=== PATIENT | female | born 1935 | race Caucasian/White ===

== ENCOUNTER 2021-06-11 04:07 | Emergency (ER) | payer MEDICARE ==
[2021-06-11] MEDS ORDERED: Lidocaine 1% w/Epinephrine 1:100K 20 ML VIAL ONE (04:14)
[2021-06-11] MEDS ORDERED: Boostrix 0.5 ML (Tdap) VIAL ONE (05:38)
[2021-06-11] MEDS ORDERED: Bacitracin 1 PK ONE (06:24)
== END 2021-06-11 10:47 ==
LOC: ERS 04:07
DX: S61.512A Laceration without foreign body of left wrist, initial encounter (principal); S80.12XA Contusion of left lower leg, initial encounter; Z23 Encounter for immunization; Z79.82 Long term (current) use of aspirin; Z79.899 Other long term (current) drug therapy; W01.0XXA Fall on same level from slipping, tripping and stumbling without subsequent striking against object, initial encounter
CPT/HCPCS: 12035; 70450; 90471; 90715

== ENCOUNTER 2021-07-02 17:42 | Emergency (ER) | payer MEDICARE ==
[2021-07-02 20:36] LABS: #Eosinphils 0.2 thou/uL (0.0-0.7); #Lymphocytes 1.5 thou/uL (1.20-3.40); #Monocytes 0.7 thou/uL (0.11-0.59); #Neutrophils 4.5 thou/uL (1.40-6.50); %Basophils 0.7 % (0.0-1.0); %Lymphocytes 21.6 % (21.0-51.0); %Monocytes 10.1 % (0.0-10.0); %Neutrophils 64.6 % (42.0-75.0); Hemoglobin 9.6 g/dL (12.0-16.0); Mean Corpuscular HGB CONC 33.4 g/dL (32.0-36.0); Mean Corpuscular Hemoglobin 32.3 pg (27.0-31.0); Mean Corpuscular Volume 96.7 fL (78.0-98.0); Mean Platelet Volume 5.8 fL (7.4-10.4); Platelet Count 531 thou/uL (130-400); RBC Distribution Width 11.9 % (11.5-14.5); Red Blood Cell (RBC) Count 2.96 mill/uL (4.20-5.40); White Blood Cell (WBC) Count 6.9 thou/uL (4.8-10.8)
[2021-07-02 20:55] LABS: ALT (SGPT) Less than 7 U/L (8-55); AST (SGOT) 12 U/L (5-34); Albumin 3.7 g/dL (3.4-4.8); Alkaline Phosphatase 97 U/L (40-110); Anion Gap 12 mmol/L (10-20); BUN (Urea Nitrogen) 19 mg/dL (9.8-20.1); Bilirubin, Total 0.2 mg/dL (0.2-1.2); Calc. Creatinine Clearance 0 mL/min (70-130); Calcium 9.2 mg/dL (7.8-10.44); Carbon Dioxide 23 mmol/L (23-31); Chloride 102 mmol/L (98-107); Globulin 3.6 g/dL (2.4-3.5); Glucose 101 mg/dL (83-110); Potassium 4.3 mmol/L (3.5-5.1); Protein, Total 7.3 g/dL (5.8-8.1); Sodium 133 mmol/L (136-145)
[2021-07-02] MEDS ORDERED: Clindamycin/D5W 900 mg/50 ml Premix Bag ONE (20:59)
== END 2021-07-02 23:14 ==
LOC: ERS 17:42
DX: S80.812A Abrasion, left lower leg, initial encounter (principal); L03.116 Cellulitis of left lower limb; I10 Essential (primary) hypertension; E03.9 Hypothyroidism, unspecified; W19.XXXA Unspecified fall, initial encounter; Z79.82 Long term (current) use of aspirin; Z79.899 Other long term (current) drug therapy
CPT/HCPCS: 36415; 80053; 83605; 85025; 87040; 96365; J3490

== ENCOUNTER 2021-12-10 11:53 | Inpatient (IN) | payer MEDICARE ==
[2021-12-10 12:49] LABS: #Eosinphils 0.1 thou/uL (0.0-0.7); #Lymphocytes 1.3 thou/uL (1.20-3.40); #Monocytes 1.4 thou/uL (0.11-0.59); #Neutrophils 12.2 thou/uL (1.40-6.50); %Basophils 0.1 % (0.0-1.0); %Eosinophils 0.8 % (0.0-10.0); %Lymphocytes 8.3 % (21.0-51.0); %Monocytes 9.6 % (0.0-10.0); %Neutrophils 81.2 % (42.0-75.0); Hemoglobin 9.7 g/dL (12.0-16.0); Mean Corpuscular HGB CONC 29.6 g/dL (32.0-36.0); Mean Corpuscular Hemoglobin 27.8 pg (27.0-31.0); Mean Corpuscular Volume 93.8 fL (78.0-98.0); Mean Platelet Volume 5.8 fL (7.4-10.4); Platelet Count 551 thou/uL (130-400); RBC Distribution Width 15.6 % (11.5-14.5)
[2021-12-10 13:06] LABS: INR-International Normal Ratio 1.3; PTT 52.7 sec (22.9-36.1)
[2021-12-10 13:07] LABS: D-Dimer Test 3.71 *mcg/mL (0.27-0.43)
[2021-12-10 13:10] LABS: ALT (SGPT) Less than 7 U/L (8-55); AST (SGOT) 10 U/L (5-34); Albumin 3.9 g/dL (3.4-4.8); Alkaline Phosphatase 103 U/L (40-110); Anion Gap 15 mmol/L (10-20); BUN (Urea Nitrogen) 23 mg/dL (9.8-20.1); Bilirubin, Total 1.1 mg/dL (0.2-1.2); Calc. Creatinine Clearance 0 mL/min (70-130); Calcium 9.3 mg/dL (7.8-10.44); Carbon Dioxide 23 mmol/L (23-31); Chloride 101 mmol/L (98-107); Glucose 99 mg/dL (83-110); Potassium 3.7 mmol/L (3.5-5.1); Protein, Total 7.9 g/dL (5.8-8.1); Sodium 135 mmol/L (136-145)
[2021-12-10] MEDS ORDERED: Cefepime 2 GM VIAL ONE (14:56)
[2021-12-10] MEDS ORDERED: Docusate 100 MG CAP PO PRN (15:26)
[2021-12-10] MEDS ORDERED: Vancomycin 1 GM/200 ML BAG ONE (15:40)
[2021-12-10] MEDS: Carvedilol 3.125 MG TAB PO SCH (18:46)
[2021-12-10] MEDS: Sodium Chloride 0.9% 1,000 ML IV SCH (18:47)
[2021-12-10 19:28] VITALS: BMI 22.4
[2021-12-10] MEDS: Carbidopa/Levodopa CR 50-200 mg Tablet PO SCH (21:04)
[2021-12-11] MEDS: Cefepime 2 GM in Sodium Chloride 0.9% 100 ML IVPB SCH ×2 (02:52→15:14)
[2021-12-11] MEDS: Sodium Chloride 0.9% 1,000 ML IV SCH ×3 (02:53→20:22)
[2021-12-11] MEDS: Levothyroxine Sodium 50 MCG TAB PO SCH (06:03)
[2021-12-11 06:17] LABS: #Eosinphils 0.2 thou/uL (0.0-0.7); #Lymphocytes 1.1 thou/uL (1.20-3.40); #Neutrophils 6.4 thou/uL (1.40-6.50); %Basophils 0.4 % (0.0-1.0); %Lymphocytes 13.1 % (21.0-51.0); %Monocytes 11.4 % (0.0-10.0); %Neutrophils 73.1 % (42.0-75.0); Hemoglobin 8.6 g/dL (12.0-16.0); Mean Corpuscular HGB CONC 31.2 g/dL (32.0-36.0); Mean Corpuscular Hemoglobin 28.5 pg (27.0-31.0); Mean Corpuscular Volume 91.2 fL (78.0-98.0); Mean Platelet Volume 6.2 fL (7.4-10.4); Platelet Count 552 thou/uL (130-400); RBC Distribution Width 15.6 % (11.5-14.5); Red Blood Cell (RBC) Count 3.03 mill/uL (4.20-5.40); White Blood Cell (WBC) Count 8.8 thou/uL (4.8-10.8)
[2021-12-11 07:00] LABS: Anion Gap 11 mmol/L (10-20); BUN (Urea Nitrogen) 14 mg/dL (9.8-20.1); Calc. Creatinine Clearance 57 mL/min (70-130); Calcium 8.4 mg/dL (7.8-10.44); Carbon Dioxide 23 mmol/L (23-31); Chloride 107 mmol/L (98-107); Glucose 97 mg/dL (83-110); Potassium 3.4 mmol/L (3.5-5.1); Sodium 138 mmol/L (136-145)
[2021-12-11] MEDS ORDERED: Potassium Chloride 20 MEQ TAB PO SCH (07:30)
[2021-12-11] MEDS: Cholecalciferol 1,000 UNITS (25 MCG) TAB PO SCH (10:19)
[2021-12-11] MEDS: Aspirin 81 mg Enteric Coated Tablet PO SCH (10:19)
[2021-12-11] MEDS: Carbidopa/Levodopa CR 50-200 mg Tablet PO SCH ×3 (10:19→20:21)
[2021-12-11] MEDS: Folic Acid 1 MG TAB PO SCH (10:19)
[2021-12-11] MEDS: Carvedilol 3.125 MG TAB PO SCH ×2 (10:21→17:52)
[2021-12-11] MEDS: Enoxaparin Sodium 30 MG/0.3 ML SYRINGE SC SCH (10:21)
[2021-12-11] MEDS: Saccharomyces boulardii 250 MG CAP PO SCH (10:21)
[2021-12-11] MEDS: Cyanocobalamin (Vitamin B-12) 1,000 MCG TAB PO SCH (10:21)
[2021-12-11] MEDS: Vancomycin HCl 750 MG in Sodium Chloride 0.9% 250 ML 250 ML IVPB SCH (17:53)
[2021-12-12] MEDS: Cefepime 2 GM in Sodium Chloride 0.9% 100 ML IVPB SCH ×2 (03:15→15:46)
[2021-12-12] MEDS: Levothyroxine Sodium 50 MCG TAB PO SCH (05:40)
[2021-12-12 06:50] LABS: #Eosinphils 0.2 thou/uL (0.0-0.7); #Lymphocytes 1.1 thou/uL (1.20-3.40); #Monocytes 0.7 thou/uL (0.11-0.59); #Neutrophils 5.3 thou/uL (1.40-6.50); %Basophils 0.6 % (0.0-1.0); %Eosinophils 3.1 % (0.0-10.0); %Lymphocytes 14.7 % (21.0-51.0); %Monocytes 9.5 % (0.0-10.0); %Neutrophils 72.1 % (42.0-75.0); Hemoglobin 9.3 g/dL (12.0-16.0); Mean Corpuscular Hemoglobin 28.3 pg (27.0-31.0); Mean Corpuscular Volume 94.5 fL (78.0-98.0); Mean Platelet Volume 6.5 fL (7.4-10.4); Platelet Count 511 thou/uL (130-400); RBC Distribution Width 15.7 % (11.5-14.5); Red Blood Cell (RBC) Count 3.27 mill/uL (4.20-5.40); White Blood Cell (WBC) Count 7.3 thou/uL (4.8-10.8)
[2021-12-12 07:12] LABS: Anion Gap 14 mmol/L (10-20); BUN (Urea Nitrogen) 11 mg/dL (9.8-20.1); Calc. Creatinine Clearance 56 mL/min (70-130); Calcium 8.4 mg/dL (7.8-10.44); Carbon Dioxide 20 mmol/L (23-31); Chloride 106 mmol/L (98-107); Glucose 94 mg/dL (83-110); Potassium 3.8 mmol/L (3.5-5.1); Sodium 136 mmol/L (136-145)
[2021-12-12] MEDS: Aspirin 81 mg Enteric Coated Tablet PO SCH (09:31)
[2021-12-12] MEDS: Cholecalciferol 1,000 UNITS (25 MCG) TAB PO SCH (09:31)
[2021-12-12] MEDS: Cyanocobalamin (Vitamin B-12) 1,000 MCG TAB PO SCH (09:31)
[2021-12-12] MEDS: Saccharomyces boulardii 250 MG CAP PO SCH (09:31)
[2021-12-12] MEDS: Carbidopa/Levodopa CR 50-200 mg Tablet PO SCH ×3 (09:31→20:15)
[2021-12-12] MEDS: Folic Acid 1 MG TAB PO SCH (09:31)
[2021-12-12] MEDS: Carvedilol 3.125 MG TAB PO SCH ×2 (09:32→15:56)
[2021-12-12] MEDS: Enoxaparin Sodium 30 MG/0.3 ML SYRINGE SC SCH (09:33)
[2021-12-12 15:23] LABS: Vancomycin, Trough 3.6 ug/mL
[2021-12-12] MEDS: Vancomycin HCl 750 MG in Sodium Chloride 0.9% 250 ML 250 ML IVPB SCH ×2 (16:45→18:53)
[2021-12-12] MEDS: Sodium Chloride 0.9% 1,000 ML IV SCH (20:15)
[2021-12-12] MEDS ORDERED: hydrOXYzine 25 MG TAB PO SCH (23:59)
[2021-12-13] MEDS: Cefepime 2 GM in Sodium Chloride 0.9% 100 ML IVPB SCH (02:22)
[2021-12-13] MEDS: Vancomycin HCl 750 MG in Sodium Chloride 0.9% 250 ML 250 ML IVPB SCH (05:06)
[2021-12-13] MEDS: Levothyroxine Sodium 50 MCG TAB PO SCH (05:06)
[2021-12-13 08:01] LABS: #Eosinphils 0.2 thou/uL (0.0-0.7); #Lymphocytes 1.4 thou/uL (1.20-3.40); #Monocytes 0.8 thou/uL (0.11-0.59); #Neutrophils 7.8 thou/uL (1.40-6.50); %Basophils 0.4 % (0.0-1.0); %Eosinophils 2.4 % (0.0-10.0); %Lymphocytes 13.2 % (21.0-51.0); Hemoglobin 10.5 g/dL (12.0-16.0); Mean Corpuscular HGB CONC 31.5 g/dL (32.0-36.0); Mean Corpuscular Hemoglobin 28.7 pg (27.0-31.0); Mean Corpuscular Volume 91.1 fL (78.0-98.0); Mean Platelet Volume 6.2 fL (7.4-10.4); Platelet Count 726 thou/uL (130-400); RBC Distribution Width 15.4 % (11.5-14.5); Red Blood Cell (RBC) Count 3.66 mill/uL (4.20-5.40); White Blood Cell (WBC) Count 10.3 thou/uL (4.8-10.8)
[2021-12-13 08:16] LABS: Anion Gap 15 mmol/L (10-20); BUN (Urea Nitrogen) 10 mg/dL (9.8-20.1); Carbon Dioxide 22 mmol/L (23-31); Chloride 103 mmol/L (98-107); Potassium 3.5 mmol/L (3.5-5.1); Sodium 136 mmol/L (136-145)
[2021-12-13 08:17] LABS: Calc. Creatinine Clearance 52 mL/min (70-130); Glucose 103 mg/dL (83-110)
[2021-12-13] MEDS: Carvedilol 3.125 MG TAB PO SCH ×2 (08:45→17:49)
[2021-12-13] MEDS: Carbidopa/Levodopa CR 50-200 mg Tablet PO SCH ×3 (08:45→20:44)
[2021-12-13] MEDS: Sulfameth/Trimethoprim DS 800-160mg TAB PO SCH ×2 (08:45→20:44)
[2021-12-13] MEDS: Aspirin 81 mg Enteric Coated Tablet PO SCH (08:45)
[2021-12-13] MEDS: Cyanocobalamin (Vitamin B-12) 1,000 MCG TAB PO SCH (08:45)
[2021-12-13] MEDS: Saccharomyces boulardii 250 MG CAP PO SCH (08:46)
[2021-12-13] MEDS: Enoxaparin Sodium 30 MG/0.3 ML SYRINGE SC SCH (08:46)
[2021-12-13] MEDS: Cephalexin 250 MG CAP PO SCH ×2 (08:46→20:43)
[2021-12-13] MEDS: Cholecalciferol 1,000 UNITS (25 MCG) TAB PO SCH (08:46)
[2021-12-13] MEDS: Folic Acid 1 MG TAB PO SCH (08:46)
[2021-12-13 17:55] LABS: Bacteria/HPF 1+ HPF (None Seen); Bilirubin Negative (Negative); Blood, Urine Negative (Negative); Clarity Clear (Clear); Glucose, Urine (Dipstick) Normal (Negative); Ketone, Urine Negative (Negative); Leukocyte Negative Leu/uL (Negative); Nitrite Negative (Negative); Protein, Urine (Dipstick) Negative (Neg-Trace); RBC/HPF 0-3 HPF (0-3); Specific Gravity, Urine 1.011 (1.002-1.036); Squamous Epithelial 0-3 HPF (0-3); Urobilinogen Normal mg/dL (Less than 2); WBC/HPF 0-3 HPF (0-3)
[2021-12-14] MEDS: Levothyroxine Sodium 50 MCG TAB PO SCH (05:47)
[2021-12-14] MEDS ORDERED: hydrALAZINE 20 MG/ML VIAL SLOW IVP PRN (06:21)
[2021-12-14 08:07] LABS: #Eosinphils 0.2 thou/uL (0.0-0.7); #Lymphocytes 1.1 thou/uL (1.20-3.40); #Monocytes 0.6 thou/uL (0.11-0.59); #Neutrophils 4.2 thou/uL (1.40-6.50); %Basophils 0.5 % (0.0-1.0); %Eosinophils 3.9 % (0.0-10.0); %Monocytes 10.3 % (0.0-10.0); %Neutrophils 68.2 % (42.0-75.0); Hemoglobin 9.6 g/dL (12.0-16.0); Mean Corpuscular HGB CONC 30.3 g/dL (32.0-36.0); Mean Corpuscular Hemoglobin 27.4 pg (27.0-31.0); Mean Corpuscular Volume 90.7 fL (78.0-98.0); Mean Platelet Volume 6.3 fL (7.4-10.4); Platelet Count 619 thou/uL (130-400); RBC Distribution Width 15.5 % (11.5-14.5); Red Blood Cell (RBC) Count 3.48 mill/uL (4.20-5.40); White Blood Cell (WBC) Count 6.2 thou/uL (4.8-10.8)
[2021-12-14 08:15] LABS: Anion Gap 13 mmol/L (10-20); BUN (Urea Nitrogen) 12 mg/dL (9.8-20.1); Calc. Creatinine Clearance 51 mL/min (70-130); Calcium 8.6 mg/dL (7.8-10.44); Carbon Dioxide 22 mmol/L (23-31); Chloride 106 mmol/L (98-107); Glucose 90 mg/dL (83-110); Potassium 3.8 mmol/L (3.5-5.1); Sodium 137 mmol/L (136-145)
[2021-12-14] MEDS: Sulfameth/Trimethoprim DS 800-160mg TAB PO SCH ×2 (09:11→20:09)
[2021-12-14] MEDS: Saccharomyces boulardii 250 MG CAP PO SCH (09:11)
[2021-12-14] MEDS: Carvedilol 3.125 MG TAB PO SCH ×2 (09:11→16:19)
[2021-12-14] MEDS: Folic Acid 1 MG TAB PO SCH (09:11)
[2021-12-14] MEDS: Cholecalciferol 1,000 UNITS (25 MCG) TAB PO SCH (09:11)
[2021-12-14] MEDS: Cephalexin 250 MG CAP PO SCH ×2 (09:11→20:08)
[2021-12-14] MEDS: Cyanocobalamin (Vitamin B-12) 1,000 MCG TAB PO SCH (09:11)
[2021-12-14] MEDS: Aspirin 81 mg Enteric Coated Tablet PO SCH (09:11)
[2021-12-14] MEDS: Carbidopa/Levodopa CR 50-200 mg Tablet PO SCH ×3 (09:12→20:08)
[2021-12-14] MEDS: Enoxaparin Sodium 40 MG/0.4 ML SYRINGE SC SCH (09:12)
[2021-12-15] MEDS: Levothyroxine Sodium 50 MCG TAB PO SCH (05:18)
[2021-12-15 07:06] LABS: #Eosinphils 0.3 thou/uL (0.0-0.7); #Lymphocytes 1.2 thou/uL (1.20-3.40); #Monocytes 0.7 thou/uL (0.11-0.59); #Neutrophils 4.5 thou/uL (1.40-6.50); %Basophils 0.3 % (0.0-1.0); %Eosinophils 4.4 % (0.0-10.0); %Lymphocytes 18.4 % (21.0-51.0); %Monocytes 10.2 % (0.0-10.0); %Neutrophils 66.7 % (42.0-75.0); Hemoglobin 9.1 g/dL (12.0-16.0); Mean Corpuscular HGB CONC 31.1 g/dL (32.0-36.0); Mean Corpuscular Hemoglobin 28.1 pg (27.0-31.0); Mean Corpuscular Volume 90.5 fL (78.0-98.0); Mean Platelet Volume 6.2 fL (7.4-10.4); Platelet Count 585 thou/uL (130-400); RBC Distribution Width 15.4 % (11.5-14.5); Red Blood Cell (RBC) Count 3.24 mill/uL (4.20-5.40); White Blood Cell (WBC) Count 6.7 thou/uL (4.8-10.8)
[2021-12-15 07:26] LABS: Anion Gap 13 mmol/L (10-20); BUN (Urea Nitrogen) 16 mg/dL (9.8-20.1); Calc. Creatinine Clearance 46 mL/min (70-130); Calcium 8.7 mg/dL (7.8-10.44); Carbon Dioxide 21 mmol/L (23-31); Chloride 106 mmol/L (98-107); Glucose 88 mg/dL (83-110); Potassium 3.9 mmol/L (3.5-5.1); Sodium 136 mmol/L (136-145)
[2021-12-15] MEDS: Aspirin 81 mg Enteric Coated Tablet PO SCH (07:47)
[2021-12-15] MEDS: Enoxaparin Sodium 40 MG/0.4 ML SYRINGE SC SCH (07:47)
[2021-12-15] MEDS: Sulfameth/Trimethoprim DS 800-160mg TAB PO SCH ×2 (07:47→20:44)
[2021-12-15] MEDS: Carbidopa/Levodopa CR 50-200 mg Tablet PO SCH ×3 (07:48→20:44)
[2021-12-15] MEDS: Cholecalciferol 1,000 UNITS (25 MCG) TAB PO SCH (07:48)
[2021-12-15] MEDS: Carvedilol 3.125 MG TAB PO SCH ×2 (07:48→15:44)
[2021-12-15] MEDS: Folic Acid 1 MG TAB PO SCH (07:48)
[2021-12-15] MEDS: Cyanocobalamin (Vitamin B-12) 1,000 MCG TAB PO SCH (07:48)
[2021-12-15] MEDS: Cephalexin 250 MG CAP PO SCH ×2 (07:48→20:44)
[2021-12-15] MEDS: Saccharomyces boulardii 250 MG CAP PO SCH (07:48)
[2021-12-16] MEDS: Levothyroxine Sodium 50 MCG TAB PO SCH (05:42)
[2021-12-16] MEDS: Enoxaparin Sodium 40 MG/0.4 ML SYRINGE SC SCH (08:16)
[2021-12-16] MEDS: Sulfameth/Trimethoprim DS 800-160mg TAB PO SCH (08:17)
[2021-12-16] MEDS: Folic Acid 1 MG TAB PO SCH (08:17)
[2021-12-16] MEDS: Carbidopa/Levodopa CR 50-200 mg Tablet PO SCH ×2 (08:17→15:35)
[2021-12-16] MEDS: Cholecalciferol 1,000 UNITS (25 MCG) TAB PO SCH (08:17)
[2021-12-16] MEDS: Aspirin 81 mg Enteric Coated Tablet PO SCH (08:17)
[2021-12-16] MEDS: Cyanocobalamin (Vitamin B-12) 1,000 MCG TAB PO SCH (08:17)
[2021-12-16] MEDS: Carvedilol 3.125 MG TAB PO SCH ×2 (08:17→15:35)
[2021-12-16] MEDS: Saccharomyces boulardii 250 MG CAP PO SCH (08:17)
[2021-12-16] MEDS: Cephalexin 250 MG CAP PO SCH (08:17)
[2021-12-16 14:54] LABS: SARS-CoV-2 NAA Rapid Test Not Detected (NotDetected)
[2021-12-16 15:45] VITALS: BP 137/72; TEMP 97.9
== END 2021-12-16 19:00 | DRG 603 ==
LOC: ERS 11:53 → T4-B 14:58
PROVIDERS: ADMIT Family Medicine; ATTEND Emergency Medicine
DX: L03.115 Cellulitis of right lower limb (principal); R44.3 Hallucinations, unspecified; I10 Essential (primary) hypertension; E03.9 Hypothyroidism, unspecified; D64.9 Anemia, unspecified; E78.5 Hyperlipidemia, unspecified; R41.0 Disorientation, unspecified; Z20.822 Contact with and (suspected) exposure to COVID-19; G62.9 Polyneuropathy, unspecified; F02.80 Dementia in other diseases classified elsewhere, unspecified severity, without behavioral disturbance, psychotic disturbance, mood disturbance, and anxiety; G20 Parkinson's disease; Z90.710 Acquired absence of both cervix and uterus; Z88.5 Allergy status to narcotic agent; Z88.8 Allergy status to other drugs, medicaments and biological substances; Z79.899 Other long term (current) drug therapy
CPT/HCPCS: 36415; 80048; 80053; 80202; 81001; 84484; 85025; 85379; 85610; 85730; 87040; 96365; 96367; J0360; J0692; J1650; J3370; J3490; J7050; U0002

== ENCOUNTER 2022-02-10 10:12 | Emergency (ER) | payer OTHER, MEDICARE | END 2022-02-10 11:56 | disposition home or self-care (01) | LOC: ERS 10:12 | DX: S01.01XA Laceration without foreign body of scalp, initial encounter (principal); I10 Essential (primary) hypertension; E03.9 Hypothyroidism, unspecified; D64.9 Anemia, unspecified; E78.5 Hyperlipidemia, unspecified; G20 Parkinson's disease; Z79.899 Other long term (current) drug therapy; Z79.01 Long term (current) use of anticoagulants; Z79.82 Long term (current) use of aspirin; W01.10XA Fall on same level from slipping, tripping and stumbling with subsequent striking against unspecified object, initial encounter | CPT/HCPCS: 12001; 70450 ==

== ENCOUNTER 2022-08-25 11:45 | Outpatient (CLI) | payer MEDICARE | END 2022-08-25 11:46 | LOC: PET 11:45 | PROVIDERS: ATTEND Psychiatry & Neurology Neurology | DX: G20 Parkinson's disease (principal); F02.80 Dementia in other diseases classified elsewhere, unspecified severity, without behavioral disturbance, psychotic disturbance, mood disturbance, and anxiety | CPT/HCPCS: 78803; A9552 ==

== ENCOUNTER 2022-08-25 21:24 | Inpatient (IN) | payer MEDICARE ==
[2022-08-25 22:30] LABS: Hemoglobin 12.9 g/dL (12.0-16.0); Mean Corpuscular HGB CONC 33.4 g/dL (32.0-36.0); Mean Corpuscular Hemoglobin 31.8 pg (27.0-31.0); Mean Corpuscular Volume 95.5 fl (78.0-98.0); Mean Platelet Volume 7.2 fL (7.4-10.4); Platelet Count 395 10x3/uL (130-400); RBC Distribution Width 12.5 % (11.5-14.5); Red Blood Cell (RBC) Count 4.07 mill/uL (4.20-5.40); White Blood Cell (WBC) Count 30.6 10x3/uL (4.8-10.8)
[2022-08-25 22:42] LABS: Bacteria/HPF 4+ HPF (None Seen); Bilirubin Negative (Negative); Blood, Urine 1+ (Negative); Clarity Turbid (Clear); Glucose, Urine (Dipstick) Normal (Negative); Ketone, Urine 10 mg/dL (Negative); Leukocyte 75 Leu/uL (Negative); Nitrite Negative (Negative); Protein, Urine (Dipstick) 30 mg/dL (Neg-Trace); RBC/HPF 0-3 HPF (0-3); Specific Gravity, Urine 1.017 (1.002-1.036); Urobilinogen 3 mg/dL (Less than 2); pH, Urine 5.5 (5.0-9.0)
[2022-08-25 22:45] LABS: Band 23 % (5-11); Lymphocytes 1 % (21-51); MDiff Complete? YES; Monocytes 2 % (0-10); Neutrophil 74 % (42-75)
[2022-08-25] MEDS ORDERED: cefTRIAXone\\ROCEPHIN 1 GM VIAL ONE (23:00)
[2022-08-25 23:28] LABS: ALT (SGPT) Less than 7 U/L (8-55); AST (SGOT) 29 U/L (5-34); Albumin 4.2 g/dL (3.4-4.8); Alkaline Phosphatase 176 U/L (40-110); Anion Gap 21 mmol/L (10-20); BUN (Urea Nitrogen) 33 mg/dL (9.8-20.1); Calc. Creatinine Clearance 0 mL/min (70-130); Calcium 9.5 mg/dL (7.8-10.44); Carbon Dioxide 17 mmol/L (23-31); Chloride 104 mmol/L (98-107); Estimated GFR 54; Globulin 3.1 g/dL (2.4-3.5); Glucose 123 mg/dL (83-110); Potassium 5.4 mmol/L (3.5-5.1); Protein, Total 7.3 g/dL (5.8-8.1); Sodium 137 mmol/L (136-145)
[2022-08-25] MEDS ORDERED: Vancomycin 1 GM/200 ML (FROZEN) BAG ONE (23:29)
[2022-08-25] MEDS ORDERED: Sodium Chloride 0.9% 1,000 ML IV SCH (23:45)
[2022-08-25] MEDS ORDERED: hydrALAZINE 20 MG/ML VIAL SLOW IVP PRN (23:47)
[2022-08-25] MEDS ORDERED: Docusate 100 MG CAP PO PRN (23:47)
[2022-08-26] MEDS ORDERED: hydrALAZINE 20 MG/ML VIAL ONE (00:01)
[2022-08-26 02:14] VITALS: BMI 20.3
[2022-08-26] MEDS ORDERED: VANCOMYCIN IVPB PRN (02:18)
[2022-08-26 02:25] LABS: Bilirubin, Total 1.2 mg/dL (0.2-1.2)
[2022-08-26] MEDS ORDERED: Vancomycin Dose by Levels Sliding Scale (Wt <71) FS SCH (02:30)
[2022-08-26] MEDS ORDERED: Sodium Chloride 0.9% 1,000 ML IV SCH (02:40)
[2022-08-26 02:48] LABS: SARS-CoV-2 NAA Rapid Test DETECTED (NotDetected)
[2022-08-26 04:49] LABS: Lactic Acid 2.5 mmol/L (0.5-2.2)
[2022-08-26 04:56] LABS: Anion Gap 18 mmol/L (10-20); BUN (Urea Nitrogen) 30 mg/dL (9.8-20.1); Calc. Creatinine Clearance 36 mL/min (70-130); Calcium 9.2 mg/dL (7.8-10.44); Carbon Dioxide 18 mmol/L (23-31); Chloride 105 mmol/L (98-107); Estimated GFR 70; Glucose 113 mg/dL (83-110); Potassium 3.9 mmol/L (3.5-5.1); Sodium 137 mmol/L (136-145)
[2022-08-26 05:12] LABS: Band 18 % (5-11); Lymphocytes 2 % (21-51); MDiff Complete? YES; Mean Corpuscular HGB CONC 33.2 g/dL (32.0-36.0); Mean Corpuscular Volume 96.5 fl (78.0-98.0); Mean Platelet Volume 6.9 fL (7.4-10.4); Monocytes 4 % (0-10); Neutrophil 76 % (42-75); Platelet Count 368 10x3/uL (130-400); RBC Distribution Width 12.5 % (11.5-14.5); Red Blood Cell (RBC) Count 3.76 mill/uL (4.20-5.40); White Blood Cell (WBC) Count 29.8 10x3/uL (4.8-10.8)
[2022-08-26] MEDS: Levothyroxine Sodium 50 MCG TAB PO SCH (05:22)
[2022-08-26] MEDS ORDERED: Vancomycin 1 GM in Premix Bag 1 BAG IVPB SCH (09:00)
[2022-08-26] MEDS: Apixaban 2.5 MG TAB PO SCH ×2 (10:05→20:30)
[2022-08-26] MEDS: Carbidopa/Levodopa CR 50-200 mg Tablet PO SCH ×3 (10:05→20:30)
[2022-08-26 11:09] LABS: Campy jejuni + coli by PCR Negative (Negative); STEC Shiga Toxin 1+2 Negative (Negative); Salmonella spp. by PCR Negative (Negative); Shigella spp + EIEC by PCR Negative (Negative)
[2022-08-26] MEDS: Aspirin 81 mg Enteric Coated Tablet PO SCH (11:09)
[2022-08-26] MEDS ORDERED: Lactated Ringer's 500 ML IV SCH (12:00)
[2022-08-26] MEDS: Lactated Ringer's 1,000 ML IV SCH (12:25)
[2022-08-26] MEDS ORDERED: QUEtiapine 25 MG TAB PO SCH (21:00)
[2022-08-26 23:39] LABS: Vancomycin, Random 4.5 ug/mL (See Comment)
[2022-08-27] MEDS ORDERED: Vancomycin HCl 750 MG in Sodium Chloride 0.9% 250 ML 250 ML IVPB SCH (01:00)
[2022-08-27] MEDS: Lactated Ringer's 1,000 ML IV SCH (01:12)
[2022-08-27] MEDS ORDERED: cefTRIAXone\\ROCEPHIN 1 GM in Sodium Chloride 0.9% 100 ML IVPB SCH (02:00)
[2022-08-27] MEDS: Levothyroxine Sodium 50 MCG TAB PO SCH (06:03)
[2022-08-27 06:51] LABS: #Basophils 0.1 thou/uL (0.0-0.2); #Eosinphils 0.1 thou/uL (0.0-0.7); #Lymphocytes 1.3 thou/uL (1.20-3.40); #Monocytes 0.8 thou/uL (0.11-0.59); #Neutrophils 10.5 thou/uL (1.40-6.50); %Basophils 0.4 % (0.0-1.0); %Eosinophils 0.5 % (0.0-10.0); %Lymphocytes 9.9 % (21.0-51.0); %Monocytes 6.6 % (0.0-10.0); %Neutrophils 82.6 % (42.0-75.0); Hemoglobin 9.7 g/dL (12.0-16.0); Mean Corpuscular HGB CONC 32.3 g/dL (32.0-36.0); Mean Corpuscular Hemoglobin 31.8 pg (27.0-31.0); Mean Corpuscular Volume 98.5 fl (78.0-98.0); Mean Platelet Volume 7.1 fL (7.4-10.4); Platelet Count 339 10x3/uL (130-400); RBC Distribution Width 12.6 % (11.5-14.5); Red Blood Cell (RBC) Count 3.04 mill/uL (4.20-5.40); White Blood Cell (WBC) Count 12.8 10x3/uL (4.8-10.8)
[2022-08-27 07:15] LABS: Anion Gap 13 mmol/L (10-20); BUN (Urea Nitrogen) 15 mg/dL (9.8-20.1); Calc. Creatinine Clearance 48 mL/min (70-130); Calcium 8.8 mg/dL (7.8-10.44); Carbon Dioxide 22 mmol/L (23-31); Chloride 107 mmol/L (98-107); Estimated GFR 86; Glucose 89 mg/dL (83-110); Potassium 3.7 mmol/L (3.5-5.1); Sodium 138 mmol/L (136-145)
[2022-08-27] MEDS ORDERED: Carvedilol 6.25 MG TAB PO SCH ×2 (08:30→17:00)
[2022-08-27] MEDS: Carbidopa/Levodopa CR 50-200 mg Tablet PO SCH ×2 (09:49→14:48)
[2022-08-27] MEDS: Apixaban 2.5 MG TAB PO SCH (09:50)
[2022-08-27] MEDS: Aspirin 81 mg Enteric Coated Tablet PO SCH (09:50)
[2022-08-27 11:39] VITALS: TEMP 98
[2022-08-27] MEDS ORDERED: Doxycycline 100 MG CAP PO SCH ×2 (14:00→21:00)
[2022-08-27 15:52] VITALS: BP 158/82
== END 2022-08-27 15:55 | disposition home or self-care (01) | DRG 871 ==
LOC: ERS 21:24 → T4-B 23:41
PROVIDERS: ADMIT Family Medicine; ATTEND Hospitalist
DX: A41.51 Sepsis due to Escherichia coli [E. coli] (principal); G93.41 Metabolic encephalopathy; U07.1 COVID-19; N39.0 Urinary tract infection, site not specified; E87.20 Acidosis, unspecified; I10 Essential (primary) hypertension; E03.9 Hypothyroidism, unspecified; E78.5 Hyperlipidemia, unspecified; G62.9 Polyneuropathy, unspecified; G20 Parkinson's disease; R19.7 Diarrhea, unspecified; Z90.710 Acquired absence of both cervix and uterus; Z88.5 Allergy status to narcotic agent; Z79.82 Long term (current) use of aspirin; Z79.899 Other long term (current) drug therapy
CPT/HCPCS: 36415; 51701; 70450; 71045; 80048; 80053; 80202; 81003; 81015; 83605; 84145; 84484; 85025; 87040; 87077; 87086; 87186; 87324; 87449; 87505; 93005; 96365; 96375; J0360; J0696; J3370; J3370-JW; J3490; J7050; J7120

== ENCOUNTER 2023-04-06 10:26 | Inpatient (IN) | payer MEDICARE ==
[2023-04-06 10:58] LABS: #Basophils 0.1 thou/uL (0.0-0.2); #Monocytes 0.8 thou/uL (0.11-0.59); #Neutrophils 5.8 thou/uL (1.40-6.50); %Basophils 0.6 % (0.0-1.0); %Eosinophils 0.5 % (0.0-10.0); %Lymphocytes 15.2 % (21.0-51.0); %Neutrophils 73.4 % (42.0-75.0); Hematocrit 32.1 % (36.0-47.0); Hemoglobin 10.6 g/dL (12.0-16.0); Mean Corpuscular Volume 93.9 fl (78.0-98.0); Platelet Count 451 10x3/uL (130-400); RBC Distribution Width 13.4 % (11.5-14.5); Red Blood Cell (RBC) Count 3.42 mill/uL (4.20-5.40); White Blood Cell (WBC) Count 7.9 10x3/uL (4.8-10.8)
[2023-04-06 11:12] LABS: Bacteria/HPF None Seen HPF (None Seen); Bilirubin Negative (Negative); Blood, Urine Negative (Negative); CAUTI Indications for Culture Alt mental st,lethar; Clarity Clear (Clear); Glucose, Urine (Dipstick) Normal (Negative); Ketone, Urine Negative (Negative); Leukocyte Negative Leu/uL (Negative); Nitrite Negative (Negative); Protein, Urine (Dipstick) 10 mg/dL (Neg-Trace); RBC/HPF 0-3 HPF (0-3); Specific Gravity, Urine 1.018 (1.002-1.036); Squamous Epithelial None Seen HPF (0-3); WBC/HPF 0-3 HPF (0-3)
[2023-04-06 11:14] LABS: Urine Culture Reflex No No
[2023-04-06 11:18] LABS: PTT 33.9 sec (22.9-36.1)
[2023-04-06 11:24] LABS: ALT (SGPT) Less than 7 U/L (8-55); AST (SGOT) 9 U/L (5-34); Albumin 3.6 g/dL (3.4-4.8); Alkaline Phosphatase 84 U/L (40-110); Anion Gap 11 mmol/L (10-20); BUN (Urea Nitrogen) 19 mg/dL (9.8-20.1); Bilirubin, Total 0.4 mg/dL (0.2-1.2); CK (CPK) 26 U/L (29-168); Calc. Creatinine Clearance 0 mL/min (70-130); Calcium 9.4 mg/dL (7.8-10.44); Carbon Dioxide 28 mmol/L (23-31); Chloride 105 mmol/L (98-107); Estimated GFR 76; Glucose 111 mg/dL (83-110); Lipase 12 U/L (8-78); Magnesium 2.1 mg/dL (1.6-2.6); Potassium 3.9 mmol/L (3.5-5.1); Protein, Total 6.6 g/dL (5.8-8.1); Sodium 140 mmol/L (136-145)
[2023-04-06 11:26] LABS: Troponin I 0.112 ng/mL (< 0.028)
[2023-04-06 13:05] LABS: Troponin I 0.113 ng/mL (< 0.028)
[2023-04-06] MEDS ORDERED: Nitroglycerin 0.4 MG TAB 1 EACH ONE (13:59)
[2023-04-06] MEDS ORDERED: Nitroglycerin 50 MG/250 ML BOT 250 ML ONE (13:59)
[2023-04-06] MEDS ORDERED: Aspirin Chewable 81 MG TAB ONE (14:30)
[2023-04-06] MEDS ORDERED: Guaifenesin DM 100-10/5 ML UDCUP PO PRN (15:08)
[2023-04-06] MEDS ORDERED: Senokot S 8.6-50 MG TAB PO PRN (15:08)
[2023-04-06 16:44] LABS: Troponin I 0.102 ng/mL (< 0.028)
[2023-04-06 19:29] LABS: Troponin I 0.104 ng/mL (< 0.028)
[2023-04-06] MEDS ORDERED: Labetalol HCl 100 MG/20 ML VIAL SLOW IVP PRN (20:36)
[2023-04-06] MEDS ORDERED: Nitroglycerin 50 MG/250 ML BOT 250 ML IVPB SCH (20:45)
[2023-04-06] MEDS: Carvedilol 6.25 MG TAB PO SCH (21:06)
[2023-04-06] MEDS: Carbidopa/Levodopa CR 50-200 mg Tablet PO SCH (21:06)
[2023-04-06 22:10] VITALS: BMI 18.7
[2023-04-07 04:35] LABS: #Basophils 0.1 thou/uL (0.0-0.2); #Eosinphils 0.1 thou/uL (0.0-0.7); #Monocytes 0.6 thou/uL (0.11-0.59); #Neutrophils 3.4 thou/uL (1.40-6.50); %Basophils 0.9 % (0.0-1.0); %Eosinophils 1.5 % (0.0-10.0); %Lymphocytes 22.7 % (21.0-51.0); %Monocytes 10.9 % (0.0-10.0); %Neutrophils 63.6 % (42.0-75.0); Hematocrit 30.5 % (36.0-47.0); Hemoglobin 9.9 g/dL (12.0-16.0); Mean Corpuscular HGB CONC 32.5 g/dL (32.0-36.0); Mean Corpuscular Hemoglobin 31.1 pg (27.0-31.0); Mean Corpuscular Volume 95.9 fl (78.0-98.0); Platelet Count 409 10x3/uL (130-400); RBC Distribution Width 13.3 % (11.5-14.5); Red Blood Cell (RBC) Count 3.18 mill/uL (4.20-5.40); White Blood Cell (WBC) Count 5.4 10x3/uL (4.8-10.8)
[2023-04-07 05:07] LABS: Anion Gap 11 mmol/L (10-20); BUN (Urea Nitrogen) 13 mg/dL (9.8-20.1); Calc. Creatinine Clearance 43 mL/min (70-130); Calcium 8.9 mg/dL (7.8-10.44); Carbon Dioxide 24 mmol/L (23-31); Chloride 106 mmol/L (98-107); Estimated GFR 84; Glucose 84 mg/dL (83-110); Potassium 3.8 mmol/L (3.5-5.1); Sodium 137 mmol/L (136-145)
[2023-04-07] MEDS: Levothyroxine Sodium 50 MCG TAB PO SCH (05:30)
[2023-04-07] MEDS: hydrALAZINE 20 MG/ML VIAL SLOW IVP PRN ×3 (05:33→17:26)
[2023-04-07] MEDS: Famotidine/PF 20 mg/2ml Vial SLOW IVP SCH (08:56)
[2023-04-07] MEDS: Carvedilol 6.25 MG TAB PO SCH ×2 (08:56→17:26)
[2023-04-07] MEDS ORDERED: Aspirin 81 mg Enteric Coated Tablet PO SCH (09:00)
[2023-04-07] MEDS: Carbidopa/Levodopa CR 50-200 mg Tablet PO SCH ×4 (10:55→20:37)
[2023-04-07] MEDS ORDERED: Docusate 100 MG CAP PO PRN (18:56)
[2023-04-07] MEDS ORDERED: Carvedilol 6.25 MG TAB PO SCH (19:02)
[2023-04-07] MEDS ORDERED: Senokot S 8.6-50 MG TAB PO PRN (19:15)
[2023-04-07] MEDS: Apixaban 2.5 MG TAB PO SCH (20:36)
[2023-04-07] MEDS: traZODone HCl 50 MG TAB PO SCH (20:36)
[2023-04-07] MEDS: Melatonin 3 MG TAB PO SCH (20:36)
[2023-04-08] MEDS: hydrALAZINE 20 MG/ML VIAL SLOW IVP PRN (01:51)
[2023-04-08] MEDS: Levothyroxine Sodium 50 MCG TAB PO SCH (06:12)
[2023-04-08] MEDS: Carbidopa/Levodopa CR 50-200 mg Tablet PO SCH ×3 (08:13→20:53)
[2023-04-08] MEDS: Carvedilol 25 MG TAB PO SCH ×2 (08:13→16:35)
[2023-04-08] MEDS: Aspirin Chewable 81 MG TAB PO SCH (08:13)
[2023-04-08] MEDS: Cholecalciferol 1,000 UNITS (25 MCG) TAB PO SCH (08:14)
[2023-04-08] MEDS: Famotidine/PF 20 mg/2ml Vial SLOW IVP SCH (08:16)
[2023-04-08] MEDS: Apixaban 2.5 MG TAB PO SCH ×2 (08:16→20:53)
[2023-04-08] MEDS: traZODone HCl 50 MG TAB PO SCH (20:53)
[2023-04-08] MEDS: Melatonin 3 MG TAB PO SCH (20:53)
[2023-04-09] MEDS: Levothyroxine Sodium 50 MCG TAB PO SCH (05:55)
[2023-04-09] MEDS: Cholecalciferol 1,000 UNITS (25 MCG) TAB PO SCH (08:25)
[2023-04-09] MEDS: Carvedilol 25 MG TAB PO SCH ×2 (08:25→16:19)
[2023-04-09] MEDS: Aspirin Chewable 81 MG TAB PO SCH (08:26)
[2023-04-09] MEDS: Carbidopa/Levodopa CR 50-200 mg Tablet PO SCH ×3 (08:26→20:41)
[2023-04-09] MEDS: Apixaban 2.5 MG TAB PO SCH ×2 (08:26→20:41)
[2023-04-09] MEDS: Famotidine/PF 20 mg/2ml Vial SLOW IVP SCH (08:30)
[2023-04-09] MEDS: traZODone HCl 50 MG TAB PO SCH (20:41)
[2023-04-09] MEDS: Melatonin 3 MG TAB PO SCH (20:41)
[2023-04-10 05:55] LABS: Hematocrit 36.9 % (36.0-47.0); Hemoglobin 12.3 g/dL (12.0-16.0); Platelet Count 462 10x3/uL (130-400)
[2023-04-10] MEDS: Levothyroxine Sodium 50 MCG TAB PO SCH (06:03)
[2023-04-10] MEDS: Carbidopa/Levodopa CR 50-200 mg Tablet PO SCH ×3 (08:42→21:07)
[2023-04-10] MEDS: Cholecalciferol 1,000 UNITS (25 MCG) TAB PO SCH (08:42)
[2023-04-10] MEDS: Aspirin Chewable 81 MG TAB PO SCH (08:42)
[2023-04-10] MEDS: Cyanocobalamin (Vitamin B-12) 1,000 MCG TAB PO SCH (08:43)
[2023-04-10] MEDS: Carvedilol 25 MG TAB PO SCH ×2 (08:43→16:25)
[2023-04-10] MEDS: Famotidine/PF 20 mg/2ml Vial SLOW IVP SCH (08:43)
[2023-04-10] MEDS: Apixaban 2.5 MG TAB PO SCH ×2 (08:43→21:08)
[2023-04-10] MEDS: Acetaminophen 325 MG TAB PO PRN ×2 (15:08→22:42)
[2023-04-10] MEDS ORDERED: Multivit, Therapeutic 1 TAB PO SCH (21:00)
[2023-04-10] MEDS ORDERED: Cyanocobalamin (Vitamin B-12) 1,000 MCG TAB PO SCH (21:00)
[2023-04-10] MEDS ORDERED: Folic Acid 1 MG TAB PO SCH (21:00)
[2023-04-10] MEDS ORDERED: Thiamine 100 MG TAB PO SCH (21:00)
[2023-04-10] MEDS: traZODone HCl 50 MG TAB PO SCH (21:08)
[2023-04-10] MEDS: Senokot S 8.6-50 MG TAB PO SCH (21:08)
[2023-04-10] MEDS: Melatonin 3 MG TAB PO SCH (21:08)
[2023-04-11] MEDS: Levothyroxine Sodium 50 MCG TAB PO SCH (05:50)
[2023-04-11] MEDS: Aspirin Chewable 81 MG TAB PO SCH (08:00)
[2023-04-11] MEDS: Carbidopa/Levodopa CR 50-200 mg Tablet PO SCH (08:00)
[2023-04-11] MEDS: Cholecalciferol 1,000 UNITS (25 MCG) TAB PO SCH (08:00)
[2023-04-11] MEDS: Senokot S 8.6-50 MG TAB PO SCH (08:00)
[2023-04-11] MEDS: Apixaban 2.5 MG TAB PO SCH (08:00)
[2023-04-11] MEDS: Carvedilol 25 MG TAB PO SCH (08:00)
[2023-04-11] MEDS: Cyanocobalamin (Vitamin B-12) 1,000 MCG TAB PO SCH (08:00)
[2023-04-11] MEDS ORDERED: Famotidine 20 MG TAB PO SCH (09:00)
[2023-04-11 11:13] VITALS: TEMP 97.9
[2023-04-11 11:47] VITALS: BP 98/40
== END 2023-04-11 12:14 | DRG 280 ==
LOC: ERS 10:26 → IMCU/EMU 14:24 → T4-B 04-08 01:16
PROVIDERS: ADMIT Hospitalist; ATTEND Internal Medicine
DX: I16.1 Hypertensive emergency (principal); I21.A1 Myocardial infarction type 2; G93.41 Metabolic encephalopathy; F03.90 Unspecified dementia, unspecified severity, without behavioral disturbance, psychotic disturbance, mood disturbance, and anxiety; G62.9 Polyneuropathy, unspecified; E78.5 Hyperlipidemia, unspecified; N18.2 Chronic kidney disease, stage 2 (mild); I12.9 Hypertensive chronic kidney disease with stage 1 through stage 4 chronic kidney disease, or unspecified chronic kidney disease; E03.9 Hypothyroidism, unspecified; Z88.8 Allergy status to other drugs, medicaments and biological substances; Z79.82 Long term (current) use of aspirin; Z79.899 Other long term (current) drug therapy; Z79.890 Hormone replacement therapy; Z90.710 Acquired absence of both cervix and uterus
CPT/HCPCS: 36415; 51701; 70450; 71045; 80048; 80053; 81001; 82550; 83605; 83690; 83735; 83880; 84443; 84484; 85014; 85018; 85025; 85049; 85610; 85730; 93005; 96365; 96366; J0360; S0028

== ENCOUNTER 2023-07-09 16:29 | Inpatient (IN) | payer MEDICARE ==
[2023-07-09 18:34] LABS: #Basophils 0.1 thou/uL (0.0-0.2); #Eosinphils 0.1 thou/uL (0.0-0.7); #Monocytes 0.7 thou/uL (0.11-0.59); #Neutrophils 7.7 thou/uL (1.40-6.50); %Basophils 0.5 % (0.0-1.0); %Eosinophils 0.8 % (0.0-10.0); %Monocytes 6.7 % (0.0-10.0); %Neutrophils 78.5 % (42.0-75.0); Hematocrit 31.6 % (36.0-47.0); Hemoglobin 10.8 g/dL (12.0-16.0); Mean Corpuscular HGB CONC 34.2 g/dL (32.0-36.0); Mean Corpuscular Hemoglobin 31.6 pg (27.0-31.0); Mean Corpuscular Volume 92.4 fl (78.0-98.0); Mean Platelet Volume 8.8 fL (7.4-10.4); Platelet Count 414 10x3/uL (130-400); RBC Distribution Width 13.5 % (11.5-14.5); Red Blood Cell (RBC) Count 3.42 mill/uL (4.20-5.40); White Blood Cell (WBC) Count 9.9 10x3/uL (4.8-10.8)
[2023-07-09 19:01] LABS: ALT (SGPT) Less than 7 U/L (8-55); AST (SGOT) 14 U/L (5-34); Albumin 3.6 g/dL (3.4-4.8); Alkaline Phosphatase 88 U/L (40-110); Anion Gap 13 mmol/L (10-20); BUN (Urea Nitrogen) 24 mg/dL (9.8-20.1); Bilirubin, Total 0.6 mg/dL (0.2-1.2); Calc. Creatinine Clearance 0 mL/min (70-130); Calcium 9.2 mg/dL (7.8-10.44); Carbon Dioxide 24 mmol/L (23-31); Chloride 104 mmol/L (98-107); Estimated GFR 77; Globulin 3.3 g/dL (2.4-3.5); Glucose 94 mg/dL (83-110); Potassium 3.7 mmol/L (3.5-5.1); Protein, Total 6.9 g/dL (5.8-8.1); Sodium 137 mmol/L (136-145)
[2023-07-09] MEDS ORDERED: fentaNYL 50 mcg/mL 1 mL Vial ONE (20:14)
[2023-07-09 20:35] LABS: Bacteria/HPF 4+ HPF (None Seen); Bilirubin Negative (Negative); Blood, Urine 1+ (Negative); CAUTI Indications for Culture Alt mental st,lethar; Clarity Turbid (Clear); Glucose, Urine (Dipstick) Normal (Negative); Ketone, Urine Trace mg/dL (Negative); Leukocyte 25 Leu/uL (Negative); Nitrite Negative (Negative); Protein, Urine (Dipstick) Negative (Neg-Trace); Specific Gravity, Urine 1.013 (1.002-1.036); Squamous Epithelial 0-3 HPF (0-3); Urobilinogen Normal mg/dL (Less than 2); pH, Urine 6.5 (5.0-9.0)
[2023-07-09 20:54] LABS: Yeast-Budding 1+ HPF (None Seen)
[2023-07-09 20:56] LABS: Urine Culture Reflex No No
[2023-07-09 22:22] LABS: Troponin I 0.036 ng/mL (< 0.028)
[2023-07-09 22:24] LABS: Acetaminophen Less than 10 mcg/mL (10.0-30.0); Alcohol Less than 10.0 mg/dL (Less than 10); Salicylate Less than 8.0 mg/dL (15.0-30.0)
[2023-07-09] MEDS ORDERED: Sodium Chloride 0.9% 100 ML ONE (23:10)
[2023-07-09] MEDS ORDERED: cefTRIAXone (ROCEPHIN) 2 GM VIAL ONE (23:10)
[2023-07-09] MEDS ORDERED: Acetaminophen 325 MG TAB PO PRN (23:45)
[2023-07-09] MEDS ORDERED: Ondansetron ODT 4 MG TAB SL PRN (23:45)
[2023-07-09] MEDS ORDERED: Ondansetron PF 4 MG/2 ML Vial IVP PRN (23:45)
[2023-07-10] MEDS ORDERED: Ondansetron PF 4 MG/2 ML Vial IVP PRN (00:06)
[2023-07-10] MEDS ORDERED: Acetaminophen 325 MG TAB PO PRN (00:06)
[2023-07-10] MEDS ORDERED: Lactated Ringer's 1,000 ML IV SCH (00:15)
[2023-07-10] MEDS ORDERED: Labetalol HCl 100 MG/20 ML VIAL ONE (00:26)
[2023-07-10] MEDS ORDERED: Labetalol HCl 100 MG/20 ML VIAL SLOW IVP SCH (01:00)
[2023-07-10 01:22] LABS: Troponin I 0.014 ng/mL (< 0.028)
[2023-07-10 04:08] LABS: #Basophils 0.1 thou/uL (0.0-0.2); #Eosinphils 0.1 thou/uL (0.0-0.7); #Monocytes 0.8 thou/uL (0.11-0.59); #Neutrophils 6.6 thou/uL (1.40-6.50); %Basophils 0.7 % (0.0-1.0); %Eosinophils 1.1 % (0.0-10.0); %Lymphocytes 16.2 % (21.0-51.0); %Monocytes 8.6 % (0.0-10.0); Hematocrit 30.8 % (36.0-47.0); Hemoglobin 10.7 g/dL (12.0-16.0); Mean Corpuscular HGB CONC 34.7 g/dL (32.0-36.0); Mean Corpuscular Hemoglobin 31.7 pg (27.0-31.0); Mean Corpuscular Volume 91.1 fl (78.0-98.0); Mean Platelet Volume 8.6 fL (7.4-10.4); Platelet Count 394 10x3/uL (130-400); RBC Distribution Width 13.5 % (11.5-14.5); Red Blood Cell (RBC) Count 3.38 mill/uL (4.20-5.40)
[2023-07-10 04:29] LABS: Anion Gap 14 mmol/L (10-20); BUN (Urea Nitrogen) 17 mg/dL (9.8-20.1); Calc. Creatinine Clearance 0 mL/min (70-130); Calcium 9.2 mg/dL (7.8-10.44); Carbon Dioxide 24 mmol/L (23-31); Chloride 106 mmol/L (98-107); Estimated GFR 83; Glucose 91 mg/dL (83-110); Potassium 4.3 mmol/L (3.5-5.1); Sodium 140 mmol/L (136-145)
[2023-07-10] MEDS: Levothyroxine Sodium 50 MCG TAB PO SCH (05:27)
[2023-07-10 06:44] LABS: Troponin I 0.028 ng/mL (< 0.028)
[2023-07-10] MEDS ORDERED: FLU VACC QS2023(65UP)/MF59C/PF 60 MCG/0.5 ML SYRINGE IM ONE (09:00)
[2023-07-10] MEDS: Senokot S 8.6-50 MG TAB PO SCH (09:26)
[2023-07-10] MEDS: Carbidopa/Levodopa CR 50-200 mg Tablet PO SCH ×3 (09:26→21:19)
[2023-07-10] MEDS: Apixaban 2.5 MG TAB PO SCH ×2 (09:27→21:19)
[2023-07-10] MEDS: Aspirin Chewable 81 MG TAB PO SCH (09:27)
[2023-07-10] MEDS: Carvedilol 25 MG TAB PO SCH ×2 (09:27→17:28)
[2023-07-10] MEDS: Famotidine 20 MG TAB PO SCH (09:27)
[2023-07-10] MEDS: Cholecalciferol 1,000 UNITS (25 MCG) TAB PO SCH (09:27)
[2023-07-10] MEDS ORDERED: hydrALAZINE 25 MG TAB PO SCH (17:15)
[2023-07-10] MEDS: Folic Acid 1 MG TAB PO SCH (21:19)
[2023-07-10] MEDS: Multivit, Therapeutic 1 TAB PO SCH (21:19)
[2023-07-10] MEDS: Thiamine 100 MG TAB PO SCH (21:19)
[2023-07-10] MEDS: hydrALAZINE 25 MG TAB PO SCH (21:19)
[2023-07-11] MEDS: cefTRIAXone\\ROCEPHIN 1 GM in Sodium Chloride 0.9% 100 ML IVPB SCH (00:15)
[2023-07-11] MEDS: Levothyroxine Sodium 50 MCG TAB PO SCH (06:05)
[2023-07-11] MEDS: Carbidopa/Levodopa CR 50-200 mg Tablet PO SCH ×3 (07:56→21:52)
[2023-07-11] MEDS: Apixaban 2.5 MG TAB PO SCH ×2 (07:56→21:53)
[2023-07-11] MEDS: Carvedilol 25 MG TAB PO SCH ×2 (07:57→16:44)
[2023-07-11] MEDS: Famotidine 20 MG TAB PO SCH (07:57)
[2023-07-11] MEDS: hydrALAZINE 25 MG TAB PO SCH ×3 (07:57→21:53)
[2023-07-11] MEDS: Senokot S 8.6-50 MG TAB PO SCH (07:57)
[2023-07-11] MEDS: Aspirin Chewable 81 MG TAB PO SCH (07:57)
[2023-07-11] MEDS: Cholecalciferol 1,000 UNITS (25 MCG) TAB PO SCH (07:57)
[2023-07-11 08:43] LABS: #Basophils 0.1 thou/uL (0.0-0.2); #Eosinphils 0.1 thou/uL (0.0-0.7); #Monocytes 0.7 thou/uL (0.11-0.59); #Neutrophils 5.7 thou/uL (1.40-6.50); %Basophils 0.6 % (0.0-1.0); %Lymphocytes 16.9 % (21.0-51.0); %Monocytes 8.9 % (0.0-10.0); Hematocrit 31.7 % (36.0-47.0); Hemoglobin 10.7 g/dL (12.0-16.0); Mean Corpuscular HGB CONC 33.8 g/dL (32.0-36.0); Mean Corpuscular Hemoglobin 31.5 pg (27.0-31.0); Mean Corpuscular Volume 93.2 fl (78.0-98.0); Platelet Count 431 10x3/uL (130-400); RBC Distribution Width 13.6 % (11.5-14.5); White Blood Cell (WBC) Count 7.9 10x3/uL (4.8-10.8)
[2023-07-11 09:27] LABS: Anion Gap 13 mmol/L (10-20); BUN (Urea Nitrogen) 10 mg/dL (9.8-20.1); Calc. Creatinine Clearance 41 mL/min (70-130); Calcium 9.2 mg/dL (7.8-10.44); Carbon Dioxide 25 mmol/L (23-31); Chloride 104 mmol/L (98-107); Estimated GFR 84; Glucose 87 mg/dL (83-110); Sodium 138 mmol/L (136-145)
[2023-07-11 14:39] VITALS: BMI 17.5
[2023-07-11] MEDS ORDERED: hydrALAZINE 25 MG TAB PO SCH (17:45)
[2023-07-11] MEDS: Multivit, Therapeutic 1 TAB PO SCH (21:53)
[2023-07-11] MEDS: Folic Acid 1 MG TAB PO SCH (21:53)
[2023-07-11] MEDS: Thiamine 100 MG TAB PO SCH (21:54)
[2023-07-12] MEDS: cefTRIAXone\\ROCEPHIN 1 GM in Sodium Chloride 0.9% 100 ML IVPB SCH (00:15)
[2023-07-12] MEDS: Levothyroxine Sodium 50 MCG TAB PO SCH (06:08)
[2023-07-12 07:06] LABS: #Basophils 0.1 thou/uL (0.0-0.2); #Eosinphils 0.1 thou/uL (0.0-0.7); #Monocytes 0.7 thou/uL (0.11-0.59); #Neutrophils 4.9 thou/uL (1.40-6.50); %Basophils 0.7 % (0.0-1.0); %Lymphocytes 16.6 % (21.0-51.0); %Monocytes 9.9 % (0.0-10.0); %Neutrophils 71.5 % (42.0-75.0); Hematocrit 30.4 % (36.0-47.0); Hemoglobin 10.3 g/dL (12.0-16.0); Mean Corpuscular HGB CONC 33.9 g/dL (32.0-36.0); Mean Corpuscular Volume 91.6 fl (78.0-98.0); Mean Platelet Volume 9.2 fL (7.4-10.4); Platelet Count 420 10x3/uL (130-400); RBC Distribution Width 13.4 % (11.5-14.5); Red Blood Cell (RBC) Count 3.32 mill/uL (4.20-5.40); White Blood Cell (WBC) Count 6.9 10x3/uL (4.8-10.8)
[2023-07-12 07:28] LABS: Anion Gap 15 mmol/L (10-20); BUN (Urea Nitrogen) 13 mg/dL (9.8-20.1); Calc. Creatinine Clearance 42 mL/min (70-130); Calcium 8.6 mg/dL (7.8-10.44); Carbon Dioxide 21 mmol/L (23-31); Chloride 101 mmol/L (98-107); Estimated GFR 84; Glucose 80 mg/dL (83-110); Potassium 3.8 mmol/L (3.5-5.1); Sodium 133 mmol/L (136-145)
[2023-07-12 08:27] VITALS: BP 176/79; TEMP 97.7
[2023-07-12] MEDS: Aspirin Chewable 81 MG TAB PO SCH (08:41)
[2023-07-12] MEDS: Carvedilol 25 MG TAB PO SCH (08:41)
[2023-07-12] MEDS: Apixaban 2.5 MG TAB PO SCH (08:41)
[2023-07-12] MEDS: Famotidine 20 MG TAB PO SCH (08:42)
[2023-07-12] MEDS: hydrALAZINE 25 MG TAB PO SCH (08:42)
[2023-07-12] MEDS: Cholecalciferol 1,000 UNITS (25 MCG) TAB PO SCH (08:42)
[2023-07-12] MEDS: Carbidopa/Levodopa CR 50-200 mg Tablet PO SCH (08:42)
[2023-07-12] MEDS: Senokot S 8.6-50 MG TAB PO SCH (08:42)
== END 2023-07-12 11:56 | DRG 689 ==
LOC: ERS 16:29 → ERHOLD 23:19 → T4-B 07-10 04:59 → OBSVTOIN 07-10 14:05
PROVIDERS: ADMIT Internal Medicine; ATTEND Internal Medicine
DX: N39.0 Urinary tract infection, site not specified (principal); G93.41 Metabolic encephalopathy; I24.89 Other forms of acute ischemic heart disease; E87.1 Hypo-osmolality and hyponatremia; I10 Essential (primary) hypertension; G20.A1 Parkinson's disease without dyskinesia, without mention of fluctuations; G62.9 Polyneuropathy, unspecified; E78.5 Hyperlipidemia, unspecified; G30.9 Alzheimer's disease, unspecified; F02.80 Dementia in other diseases classified elsewhere, unspecified severity, without behavioral disturbance, psychotic disturbance, mood disturbance, and anxiety; D64.9 Anemia, unspecified; E03.9 Hypothyroidism, unspecified; Z90.710 Acquired absence of both cervix and uterus; Z88.5 Allergy status to narcotic agent; Z88.8 Allergy status to other drugs, medicaments and biological substances; Z79.899 Other long term (current) drug therapy; Z79.01 Long term (current) use of anticoagulants; Z79.82 Long term (current) use of aspirin
CPT/HCPCS: 36415; 70450; 71045; 72125; 80048; 80053; 80307; 81001; 82550; 83605; 84439; 84443; 84484; 85025; 87086; 93005; 96365; 96372; 96375; G0378; J0696; J3010; J3490; J7120

== ENCOUNTER 2023-07-14 18:20 | Emergency (ER) | payer MEDICARE ==
[2023-07-14 19:14] LABS: #Basophils 0.1 thou/uL (0.0-0.2); #Eosinphils 0.1 thou/uL (0.0-0.7); #Neutrophils 8.1 thou/uL (1.40-6.50); %Basophils 0.5 % (0.0-1.0); %Eosinophils 1.2 % (0.0-10.0); %Lymphocytes 11.1 % (21.0-51.0); %Monocytes 9.8 % (0.0-10.0); %Neutrophils 76.7 % (42.0-75.0); Hematocrit 31.1 % (36.0-47.0); Hemoglobin 10.4 g/dL (12.0-16.0); Mean Corpuscular HGB CONC 33.4 g/dL (32.0-36.0); Mean Corpuscular Hemoglobin 32.1 pg (27.0-31.0); Mean Platelet Volume 8.9 fL (7.4-10.4); Platelet Count 357 10x3/uL (130-400); RBC Distribution Width 13.9 % (11.5-14.5); Red Blood Cell (RBC) Count 3.24 mill/uL (4.20-5.40); White Blood Cell (WBC) Count 10.5 10x3/uL (4.8-10.8)
[2023-07-14 19:43] LABS: ALT (SGPT) Less than 7 U/L (8-55); AST (SGOT) 12 U/L (5-34); Albumin 3.5 g/dL (3.4-4.8); Alkaline Phosphatase 85 U/L (40-110); Anion Gap 14 mmol/L (10-20); BUN (Urea Nitrogen) 24 mg/dL (9.8-20.1); Bilirubin, Total 0.4 mg/dL (0.2-1.2); Calc. Creatinine Clearance 0 mL/min (70-130); Calcium 8.8 mg/dL (7.8-10.44); Carbon Dioxide 20 mmol/L (23-31); Chloride 106 mmol/L (98-107); Estimated GFR 65; Globulin 2.9 g/dL (2.4-3.5); Glucose 121 mg/dL (83-110); Potassium 3.7 mmol/L (3.5-5.1); Protein, Total 6.4 g/dL (5.8-8.1); Sodium 136 mmol/L (136-145)
== END 2023-07-14 22:22 | disposition home or self-care (01) ==
LOC: ERS 18:20
DX: I95.9 Hypotension, unspecified (principal); I10 Essential (primary) hypertension; E03.9 Hypothyroidism, unspecified; G20.A1 Parkinson's disease without dyskinesia, without mention of fluctuations; Z79.82 Long term (current) use of aspirin; Z79.899 Other long term (current) drug therapy
CPT/HCPCS: 36415; 80053; 85025; 99284